=== PATIENT | male | born 1960 | race Two or more races ===

== ENCOUNTER 2017-10-21 23:46 | Observation (INO) | payer BC ==
[2017-10-22 01:16] LABS: BASO # 0.1 K/uL (0.0-0.2); BASO % 1.4 % (0.0-2.0); EOS # 0.1 K/uL (0.0-0.7); HEMOGLOBIN 12.7 g/dL (12.0-18.0); LYMPH # 2.4 K/uL (1.0-4.3); LYMPH % 34.4 % (20.0-40.0); MEAN CELL VOLUME 88.9 fL (80.0-94.0); MEAN CORPUSCULAR HEMOGLOBIN 30.7 pg (27.0-31.0); MEAN CORPUSCULAR HGB CONC 34.5 g/dL (33.0-37.0); MEAN PLATELET VOLUME 8.4 fL (7.2-11.7); MONO # 0.8 K/uL (0.0-0.8); MONO % 11.3 % (0.0-10.0); NEUT # 3.5 K/uL (1.8-7.0); NEUT % 51.9 % (50.0-75.0); RBC 4.12 Mil/uL (4.40-5.90); RED CELL DISTRIBUTION WIDTH 13.5 % (11.5-14.5); WHITE BLOOD COUNT 6.8 K/uL (4.8-10.8)
[2017-10-22 01:22] LABS: ALB/GLOB RATIO 1.2 (1.0-2.1); ALT/SGPT 48 U/L (21-72); AST/SGOT 35 U/L (17-59); BLOOD UREA NITROGEN 12 mg/dL (9-20); CALCIUM 8.2 mg/dl (8.6-10.4); GFR AFRICAN-AMERICAN > 60; GFR NON-AFRICAN AMERICAN > 60
[2017-10-22 01:35] LABS: B-TYPE NATRIURETIC PEPTIDE < 11.1 pg/mL (0-900)
--- NOTE | 2017-10-22 03:24 | C.PDOC ---
History Of Present Illness 57 year old with PMHx of DM and HTN presents to the ED for evaluation of headache, dizziness and CP for the past 3 days. Patient reports feeling intermittent dizziness and CP for the past few weeks patient states it happens at rest and exertion not able to state what makes it better or worse but today was worse than previous days. Patient reports having right knee replacement surgery and left ankle open internal fixation. Patient denies SOB, fever, chills , nausea, vomit. Time Seen by Provider: 10/22/17 00:29 Chief Complaint (Nursing): Chest Pain History Per: Patient History/Exam Limitations: no limitations Onset/Duration Of Symptoms: Days Current Symptoms Are (Timing): Still Present Pain Scale Rating Of: 2 Quality: Sharp, "Pain" Associated Symptoms: Nausea Modifying Factors: None Exacerbating Factors: None Recent travel outside of the [place]: No Additional History Per: Patient Past Medical History Reviewed: Historical Data, Nursing Documentation, Vital Signs Vital Signs: Last Vital Signs Temp 97.8 F 10/22/17 23:30 Pulse 65 10/23/17 00:40 Resp 18 10/22/17 23:30 BP 130/73 10/22/17 23:30 Pulse Ox 96 10/22/17 23:30 - Medical History PMH: Diabetes, HTN Other Surgeries: right knee replacement, left ankle open reduction Family History: States: Unknown Family Hx - Social History Hx Alcohol Use: Yes Hx Substance Use: No - Immunization History Hx Tetanus Toxoid Vaccination: No Hx Influenza Vaccination: No Hx Pneumococcal Vaccination: No Review Of Systems Constitutional: Negative for: Fever, Chills ENT: Negative for: Ear Pain Cardiovascular: Positive for: Chest Pain. Negative for: Palpitations Respiratory: Negative for: Cough, Shortness of Breath Gastrointestinal: Negative for: Nausea, Vomiting, Abdominal Pain Genitourinary: Negative for: Dysuria Musculoskeletal: Negative for: Neck Pain Skin: Positive for: Rash Neurological: Negative for: Weakness, Numbness, Headache Psych: Negative for: Anxiety Physical Exam - Physical Exam Appears: Non-toxic, No Acute Distress Skin: Normal Color, Warm, Dry Head: Atraumatic, Normacephalic Eye(s): bilateral: Normal Inspection Ear(s): Bilateral: Normal Nose: No Discharge Oral Mucosa: Moist Tongue: Normal Appearing Lips: Normal Appearing Teeth: Normal Dentition Neck: Normal ROM, Supple Chest: Symmetrical Cardiovascular: Rhythm Regular, No Murmur Respiratory: Normal Breath Sounds, No Rales, No Rhonchi, No Wheezing Gastrointestinal/Abdominal: Soft, No Tenderness Back: Normal Inspection Male Genital: Normal Inspection Extremity: Normal ROM, No Pedal Edema, No Calf Tenderness, No Deformity, No Swelling Extremity: Bilateral: Atraumatic Neurological/Psych: Oriented x3, Normal Speech, Normal Cognition ED Course And Treatment - Laboratory Results Result Diagrams: 10/22/17 01:07 10/22/17 01:07 ECG: Interpreted By Me, Viewed By Me ECG Rhythm: Sinus Rhythm Interpretation Of ECG: NSR 87 MT 178 QRS 108 Qt 375 Qtc 450 Rate From EC O2 Sat by Pulse Oximetry: 100 (On RA) Pulse Ox Interpretation: Normal - Radiology CXR: Interpreted by Me, Viewed By Me CXR Interpretation: No: No Acute Disease, Infiltrates, Cardiomegaly, Pnemothorax Medical Decision Making Medical Decision Making: Plan: * EKG * Labs * BS 303 * CBC unremarkable * CXR neg * trop neg * labs unremarkable * Pt 's story for angina is concerning. Pt will stay for a cardiac stress test in am. Disposition Counseled Patient/Family Regarding: Diagnosis - Disposition Disposition: HOSPITALIZED Disposition Time: 02:06 Condition: STABLE - Clinical Impression Clinical Impression: Chest pain, Precordial pain, Diabetes 1.5, managed as type 2, Hypertension - Scribe Statement The provider has reviewed the documentation as recorded by the Scribe Sha Alicea All medical record entries made by the Scribe were at my direction and personally dictated by me. I have reviewed the chart and agree that the record accurately reflects my personal performance of the history, physical exam, medical decision making, and the department course for this patient. I have also personally directed, reviewed, and agree with the discharge instructions and disposition.
--- NOTE | 2017-10-22 07:53 | RAD ---
HISTORY: SOB COMPARISON: None TECHNIQUE: Chest PA and lateral FINDINGS: LUNGS: No focal consolidation is seen. PLEURA: No pleural effusion is identified. CARDIOVASCULAR: Heart size is within normal limits. OSSEOUS STRUCTURES: Degenerative changes noted of the spine. VISUALIZED UPPER ABDOMEN: Unremarkable. OTHER FINDINGS: None. IMPRESSION: No acute cardiopulmonary process seen.
[2017-10-22] MEDS: (Novolog) Insulin Aspart, Recombinant 100 u/ml 10 ml vial SC SCH ×4 (08:28→21:51)
[2017-10-22] MEDS: Enoxaparin 40 mg Syringe SC SCH (09:55)
[2017-10-22 16:58] LABS: CK-MB 2.15 ng/mL (0.0-3.38)
--- NOTE | 2017-10-22 19:25 | CP.PCM.CON ---
History of Present Illness - History of Present Illness History of Present Illness: 57 year old with DM, HTN, had dizziness, cp atypical, no EKG changes, NO AL, f/ u with echo, prior surgery and both knees. Review of Systems - Review of Systems Systems not reviewed;Unavailable: Acuity of Condition - Constitutional Constitutional: Lethargy, Weakness - EENT Eyes: absent: Discharge Nose/Mouth/Throat: absent: Epistaxis, Nasal Congestion - Cardiovascular Cardiovascular: Chest Pain. absent: Acrocyanosis, Diaphoresis, Dyspnea on Exertion, Edema, Palpitations, Syncope - Respiratory Respiratory: Dyspnea. absent: Cough, Hemoptysis - Gastrointestinal Gastrointestinal: absent: Abdominal Pain, Hematochezia, Vomiting - Genitourinary Genitourinary: absent: Change in Urinary Stream Past Patient History - Past Medical History & Family History Past Medical History?: Yes - Past Social History Smoking Status: Never Smoked - CARDIAC Hx Cardiac Disorders: Yes Hx Hypertension: Yes - PULMONARY Hx Respiratory Disorders: No - NEUROLOGICAL Hx Neurological Disorder: No - HEENT Hx HEENT Problems: No - RENAL Hx Chronic Kidney Disease: No - ENDOCRINE/METABOLIC Hx Endocrine Disorders: Yes Hx Diabetes Mellitus Type 2: Yes - HEMATOLOGICAL/ONCOLOGICAL Hx Blood Disorders: No - INTEGUMENTARY Hx Dermatological Problems: No - MUSCULOSKELETAL/RHEUMATOLOGICAL Hx Musculoskeletal Disorders: Yes Hx Falls: No Hx Fractures: Yes (left ankle) - GASTROINTESTINAL Hx Gastrointestinal Disorders: No - GENITOURINARY/GYNECOLOGICAL Hx Genitourinary Disorders: No - PSYCHIATRIC Hx Psychophysiologic Disorder: No Hx Substance Use: No - SURGICAL HISTORY Hx Surgeries: Yes Hx Joint Replacement: Yes (RIGHT KNEE) Other/Comment: LEFT ANKLE SCREW - ANESTHESIA Hx Anesthesia: Yes Hx Anesthesia Reactions: No Meds Allergies/Adverse Reactions: Allergies Allergy/AdvReac Type Severity Reaction Status Date / Time No Known Allergies Allergy Unverified 10/22/17 00:03 - Medications Medications: Current Medications Acetaminophen (Tylenol 325mg Tab) 650 mg PO Q6 PRN PRN Reason: Pain, moderate (4-7) Last Admin: 10/22/17 16:35 Dose: 650 mg Aspirin (Aspirin Chewable) 81 mg PO DAILY [facility] Last Admin: 10/22/17 09:55 Dose: 81 mg Enoxaparin Sodium (Lovenox) 40 mg SC DAILY [facility] Last Admin: 10/22/17 09:55 Dose: 40 mg Glipizide (Glucotrol) 5 mg PO BID [facility] Last Admin: 10/22/17 17:18 Dose: 5 mg Insulin Aspart (Novolog) 0 unit SC ACHS [facility] PRN Reason: Protocol Last Admin: 10/22/17 17:02 Dose: Not Given Losartan Potassium (Cozaar) 100 mg PO DAILY [facility] Last Admin: 10/22/17 09:55 Dose: 100 mg Rosuvastatin Calcium (Crestor) 20 mg PO [facility] Physical Exam - Head Exam Head Exam: ATRAUMATIC - Eye Exam Eye Exam: EOMI, PERRL - ENT Exam ENT Exam: Mucous Membranes Moist - Neck Exam Neck exam: Negative for: Lymphadenopathy, Thyromegaly - Respiratory Exam Respiratory Exam: Clear to Auscultation Bilateral. absent: Rales - Cardiovascular Exam Cardiovascular Exam: REGULAR RHYTHM - GI/Abdominal Exam GI & Abdominal Exam: Normal Bowel Sounds. absent: Organomegaly - Rectal Exam Rectal Exam: Deferred - Extremities Exam Extremities exam: Positive for: normal capillary refill, pedal pulses present. Negative for: calf tenderness - Neurological Exam Neurological exam: Alert, Oriented x3 - Psychiatric Exam Psychiatric exam: Normal Mood - Skin Skin Exam: Dry Results - Vital Signs Recent Vital Signs: Last Vital Signs Temp 97.5 F L 10/22/17 15:58 Pulse 83 10/22/17 16:00 Resp 20 10/22/17 15:58 BP 145/86 10/22/17 15:58 Pulse Ox 96 10/22/17 15:58 - Labs Result Diagrams: 10/22/17 01:07 10/22/17 01:07 Labs: Laboratory Results - last 24 hr 10/22/17 10/22/17 10/22/17 01:07 01:07 03:28 WBC 6.8 RBC 4.12 L Hgb 12.7 Hct 36.7 MCV 88.9 MCH 30.7 MCHC 34.5 RDW 13.5 Plt Count 228 MPV 8.4 Neut % (Auto) 51.9 Lymph % (Auto) 34.4 [place] % (Auto) 11.3 H Eos % (Auto) 1.0 Baso % (Auto) 1.4 Neut # 3.5 Lymph # 2.4 [place] # 0.8 Eos # 0.1 Baso # 0.1 Sodium 134 Potassium 3.7 Chloride 96 L Carbon Dioxide 26 Anion Gap 16 BUN 12 Creatinine 0.9 Est GFR ( Amer) > 60 Est GFR (Non-Af Amer) > 60 POC Glucose (mg/dL) Random Glucose 303 H Calcium 8.2 L Total Bilirubin 0.5 AST 35 ALT 48 Alkaline Phosphatase 73 Total Creatine Kinase CK-MB (Mass) Troponin I < 0.0120 < 0.0120 NT-Pro-B Natriuret Pep < 11.1 Total Protein 7.4 Albumin 4.0 Globulin 3.4 Albumin/Globulin Ratio 1.2 10/22/17 10/22/17 10/22/17 06:30 11:54 15:37 WBC RBC Hgb Hct MCV MCH MCHC RDW Plt Count MPV Neut % (Auto) Lymph % (Auto) [place] % (Auto) Eos % (Auto) Baso % (Auto) Neut # Lymph # [place] # Eos # Baso # Sodium Potassium Chloride Carbon Dioxide Anion Gap BUN Creatinine Est GFR ( Amer) Est GFR (Non-Af Amer) POC Glucose (mg/dL) 236 H 246 H Random Glucose Calcium Total Bilirubin AST ALT Alkaline Phosphatase Total Creatine Kinase 554 H CK-MB (Mass) 2.15 Troponin I < 0.0120 NT-Pro-B Natriuret Pep Total Protein Albumin Globulin Albumin/Globulin Ratio 10/22/17 16:25 WBC RBC Hgb Hct MCV MCH MCHC RDW Plt Count MPV Neut % (Auto) Lymph % (Auto) [place] % (Auto) Eos % (Auto) Baso % (Auto) Neut # Lymph # [place] # Eos # Baso # Sodium Potassium Chloride Carbon Dioxide Anion Gap BUN Creatinine Est GFR ( Amer) Est GFR (Non-Af Amer) POC Glucose (mg/dL) 136 H Random Glucose Calcium Total Bilirubin AST ALT Alkaline Phosphatase Total Creatine Kinase CK-MB (Mass) Troponin I NT-Pro-B Natriuret Pep Total Protein Albumin Globulin Albumin/Globulin Ratio Assessment & Plan (1) Chest pain Status: Acute Comment: no AL f/u with echo (2) Diabetes 1.5, managed as type 2 Status: Chronic (3) Hypertension Status: Chronic
--- NOTE | 2017-10-22 19:25 | CARD ---
APPROVED REPORT EXAM: Two-dimensional and M-mode echocardiogram with Doppler and color Doppler. Other Information Quality : GoodRhythm : INDICATION Dizziness and Vertigo Chest Pain RISK FACTORS Hypertension Diabetes 2D DIMENSIONS IVSd1.1 (0.7-1.1cm)LVDd5.8 (3.9-5.9cm) PWd1.0 (0.7-1.1cm)LVDs3.9 (2.5-4.0cm) FS (%) 32.4 %LVEF (%)59.9 (>50%) M-Mode DIMENSIONS Left Atrium (MM)4.55 (2.5-4.0cm)Aortic Root3.88 (2.2-3.7cm) Aortic Cusp Exc.2.64 (1.5-2.0cm) Mitral Valve MV E Sztgarkr88.7cm/sMV A Rgcomwgg53.0cm/sE/A ratio0.8 TDI E/Lateral E'0.0E/Medial E'0.0 Tricuspid Valve TR Peak Fgusesmv677mx/sTR Peak Gr.[id number] LEFT VENTRICLE The left ventricle is normal size. There is normal left ventricular wall thickness. The left ventricular function is normal. The left ventricular ejection fraction is within the normal range. There is normal LV segmental wall motion. Transmitral Doppler flow pattern is abnormal. RIGHT VENTRICLE The right ventricle is normal size. ATRIA The right atrium size is normal. AORTIC VALVE The aortic valve is normal in structure. MITRAL VALVE Mitral regurgitation is trace. TRICUSPID VALVE There is trace to mild tricuspid regurgitation. <Conclusion> Normal LV systolic function. Disatolic dysfunction. Trace MR. Trace to mild TR.
--- NOTE | 2017-10-22 23:17 | CP.PCM.HP ---
History of Present Illness - History of Present Illness History of Present Illness: Chief Complaint ]: Chest Pain HPI: 57 year old with PMHx of DM and HTN presents to the ED for evaluation of headache, dizziness and CP for the past 3 days. Patient reports feeling intermittent dizziness and CP for the past few weeks patient states it happens at rest and exertion not able to state what makes it better or worse but today was worse than previous days. Patient reports having right knee replacement surgery and left ankle open internal fixation. Patient denies SOB, fever, chills , nausea, vomit. Present on Admission - Present on Admission Any Indicators Present on Admission: Yes Review of Systems - Review of Systems Systems not reviewed;Unavailable: Acuity of Condition - Constitutional Constitutional: Fatigue, Lethargy, Malaise - EENT Eyes: absent: As Per HPI, Blind Spots, Blurred Vision, Change in Vision, Decreased Night Vision, Diplopia, Discharge, Dry Eye, Exophthalmos, Floaters, Irritation, Itchy Eyes, Loss of Peripheral Vision, Pain, Photophobia, Requires Corrective Lenses, Sees Flashes, Spots in Vision, Tunnel Vision, Other Visual Disturbances, Loss of Vision, Other Nose/Mouth/Throat: absent: As Per HPI, Epistaxis, Nasal Congestion, Nasal Discharge, Nasal Obstruction, Nasal Trauma, Nose Pain, Post Nasal Drip, Sinus Pain, Sinus Pressure, Bleeding Gums, Change in Voice, Dental Pain, Dry Mouth, Dysphagia, Halitosis, Hoarsness, Lip Swelling, Mouth Lesions, Mouth Pain, Odynophagia, Sore Throat, Throat Swelling, Tongue Swelling, Facial Pain, Neck Pain, Neck Mass, Other - Cardiovascular Cardiovascular: Chest Pain, Dyspnea - Respiratory Respiratory: absent: As Per HPI, Cough, Dyspnea, Hemoptysis, Dyspnea on Exertion , Wheezing, Snoring, Stridor, Pain on Inspiration, Chest Congestion, Excessive Mucous Production, Change in Mucous Color, Pain with Coughing, Other - Gastrointestinal Gastrointestinal: absent: As Per HPI, Abdominal Pain, Belching, Bloating, Change in Bowel Habits, Change in Stool Character, Coffee Ground Emesis, Constipation, Cramping, Diarrhea, Dyspepsia, Dysphagia, Early Satiety, Excessive Flatus, Fecal Incontinence, Heartburn, Hematemesis, Hematochezia, Loose Stools, Melena, Nausea, Odynophagia, Temesmus, Vomiting, Other - Genitourinary Genitourinary: absent: As Per HPI, Change in Urinary Stream, Difficulty Urinating, Dysuria, Flank Pain, Hematuria, Pyuria, Nocturia, Urinary Incontinence, Urinary Frequency, Urinary Hesitance, Urinary Urgency, Voiding Freq/Small Amts, Freq UTI, Hx Renal/Bladder Calculi, Hx /Renal Surgery, Bladder Distension, Other - Musculoskeletal Musculoskeletal: Back Pain, Limited Range of Motion, Myalgias, Stiffness - Neurological Neurological: Dizziness, Weakness - Endocrine Endocrine: Palpitations, Polydipsia, Polyphagia, Polyuria Past Patient History - Past Medical History & Family History Past Medical History?: Yes - Past Social History Smoking Status: Never Smoked - CARDIAC Hx Cardiac Disorders: Yes Hx Hypertension: Yes - PULMONARY Hx Respiratory Disorders: No - NEUROLOGICAL Hx Neurological Disorder: No - HEENT Hx HEENT Problems: No - RENAL Hx Chronic Kidney Disease: No - ENDOCRINE/METABOLIC Hx Endocrine Disorders: Yes Hx Diabetes Mellitus Type 2: Yes - HEMATOLOGICAL/ONCOLOGICAL Hx Blood Disorders: No - INTEGUMENTARY Hx Dermatological Problems: No - MUSCULOSKELETAL/RHEUMATOLOGICAL Hx Musculoskeletal Disorders: Yes Hx Falls: No Hx Fractures: Yes (left ankle) - GASTROINTESTINAL Hx Gastrointestinal Disorders: No - GENITOURINARY/GYNECOLOGICAL Hx Genitourinary Disorders: No - PSYCHIATRIC Hx Psychophysiologic Disorder: No Hx Substance Use: No - SURGICAL HISTORY Hx Surgeries: Yes Hx Joint Replacement: Yes (RIGHT KNEE) Other/Comment: LEFT ANKLE SCREW - ANESTHESIA Hx Anesthesia: Yes Hx Anesthesia Reactions: No Meds Allergies/Adverse Reactions: Allergies Allergy/AdvReac Type Severity Reaction Status Date / Time No Known Allergies Allergy Unverified 10/22/17 00:03 Physical Exam - Constitutional Appears: No Acute Distress - Head Exam Head Exam: ATRAUMATIC, NORMAL INSPECTION, NORMOCEPHALIC - Eye Exam Eye Exam: EOMI, Normal appearance, PERRL Pupil Exam: NORMAL ACCOMODATION, PERRL - Respiratory Exam Respiratory Exam: Clear to Auscultation Bilateral - Cardiovascular Exam Cardiovascular Exam: REGULAR RHYTHM - GI/Abdominal Exam GI & Abdominal Exam: Normal Bowel Sounds, Soft. absent: Tenderness Results - Vital Signs Recent Vital Signs: Last Vital Signs Temp 97.5 F L 10/22/17 15:58 Pulse 83 10/22/17 16:00 Resp 20 10/22/17 15:58 BP 145/86 10/22/17 15:58 Pulse Ox 96 10/22/17 15:58 - Labs Result Diagrams: 10/22/17 01:07 10/22/17 01:07 Labs: Laboratory Results - last 24 hr 10/22/17 10/22/17 10/22/17 01:07 01:07 03:28 WBC 6.8 RBC 4.12 L Hgb 12.7 Hct 36.7 MCV 88.9 MCH 30.7 MCHC 34.5 RDW 13.5 Plt Count 228 MPV 8.4 Neut % (Auto) 51.9 Lymph % (Auto) 34.4 [place] % (Auto) 11.3 H Eos % (Auto) 1.0 Baso % (Auto) 1.4 Neut # 3.5 Lymph # 2.4 [place] # 0.8 Eos # 0.1 Baso # 0.1 Sodium 134 Potassium 3.7 Chloride 96 L Carbon Dioxide 26 Anion Gap 16 BUN 12 Creatinine 0.9 Est GFR ( Amer) > 60 Est GFR (Non-Af Amer) > 60 POC Glucose (mg/dL) Random Glucose 303 H Calcium 8.2 L Total Bilirubin 0.5 AST 35 ALT 48 Alkaline Phosphatase 73 Total Creatine Kinase CK-MB (Mass) Troponin I < 0.0120 < 0.0120 NT-Pro-B Natriuret Pep < 11.1 Total Protein 7.4 Albumin 4.0 Globulin 3.4 Albumin/Globulin Ratio 1.2 10/22/17 10/22/17 10/22/17 06:30 11:54 15:37 WBC RBC Hgb Hct MCV MCH MCHC RDW Plt Count MPV Neut % (Auto) Lymph % (Auto) [place] % (Auto) Eos % (Auto) Baso % (Auto) Neut # Lymph # [place] # Eos # Baso # Sodium Potassium Chloride Carbon Dioxide Anion Gap BUN Creatinine Est GFR ( Amer) Est GFR (Non-Af Amer) POC Glucose (mg/dL) 236 H 246 H Random Glucose Calcium Total Bilirubin AST ALT Alkaline Phosphatase Total Creatine Kinase 554 H CK-MB (Mass) 2.15 Troponin I < 0.0120 NT-Pro-B Natriuret Pep Total Protein Albumin Globulin Albumin/Globulin Ratio 10/22/17 10/22/17 16:25 21:25 WBC RBC Hgb Hct MCV MCH MCHC RDW Plt Count MPV Neut % (Auto) Lymph % (Auto) [place] % (Auto) Eos % (Auto) Baso % (Auto) Neut # Lymph # [place] # Eos # Baso # Sodium Potassium Chloride Carbon Dioxide Anion Gap BUN Creatinine Est GFR ( Amer) Est GFR (Non-Af Amer) POC Glucose (mg/dL) 136 H 198 H Random Glucose Calcium Total Bilirubin AST ALT Alkaline Phosphatase Total Creatine Kinase CK-MB (Mass) Troponin I NT-Pro-B Natriuret Pep Total Protein Albumin Globulin Albumin/Globulin Ratio Assessment & Plan (1) S/P TKR (total knee replacement) Status: Acute (2) Chest pain Status: Acute (3) Diabetes 1.5, managed as type 2 Status: Chronic (4) Hypertension Status: Chronic
[2017-10-23 05:33] LABS: CK-MB 1.42 ng/mL (0.0-3.38)
[2017-10-23] MEDS: (Novolog) Insulin Aspart, Recombinant 100 u/ml 10 ml vial SC SCH ×5 (08:25→21:40)
[2017-10-23 08:37] LABS: HDL CHOLESTEROL 35 mg/dL (30-70)
[2017-10-23 08:43] LABS: CK-MB 1.52 ng/mL (0.0-3.38)
[2017-10-23 08:48] LABS: LDL CHOLESTEROL 102 mg/dL (0-129)
[2017-10-23] MEDS: Enoxaparin 40 mg Syringe SC SCH (10:10)
--- NOTE | 2017-10-23 12:27 | CP.PCM.PN ---
Subjective - Date & Time of Evaluation Date of Evaluation: 10/23/17 Time of Evaluation: 12:00 - Subjective Subjective: Negative enzymes for LA, EKG with right axis deviation, echo with normal left ventricular contractility, normal right ventricular size and function, no pulmonary hypertension no pericardial disease. With prior knee surgery, he underwent an exercise stress test where he didn't 6.3 minutes of Taye protocol , no chest pain no significant EKG changes. Follow [facility]. Objective - Vital Signs/Intake and Output Vital Signs (last 24 hours): Temp Pulse Resp BP Pulse Ox 97.8 F 64 18 130/73 100 10/22/17 23:30 10/23/17 04:04 10/22/17 23:30 10/22/17 23:30 10/23/17 02:06 Intake and Output: 10/23/17 10/23/17 06:59 18:59 Intake Total 0 Output Total 400 Balance -400 - Medications Medications: Current Medications Acetaminophen (Tylenol 325mg Tab) 650 mg PO Q6 PRN PRN Reason: Pain, moderate (4-7) Last Admin: 10/23/17 04:33 Dose: 650 mg Aspirin (Aspirin Chewable) 81 mg PO DAILY [facility] Last Admin: 10/23/17 10:10 Dose: 81 mg Enoxaparin Sodium (Lovenox) 40 mg SC DAILY [facility] Last Admin: 10/23/17 10:10 Dose: 40 mg Glipizide (Glucotrol) 5 mg PO BID [facility] Last Admin: 10/23/17 10:10 Dose: 5 mg Insulin Aspart (Novolog) 0 unit SC ACHS [facility] PRN Reason: Protocol Last Admin: 10/23/17 10:09 Dose: 2 unit Losartan Potassium (Cozaar) 100 mg PO DAILY [facility] Last Admin: 10/23/17 10:10 Dose: 100 mg Rosuvastatin Calcium (Crestor) 20 mg PO HS [facility] Last Admin: 10/22/17 21:30 Dose: 20 mg - Labs Labs: 10/22/17 01:07 10/22/17 01:07 - Constitutional Appears: Non-toxic - Head Exam Head Exam: ATRAUMATIC - Eye Exam Eye Exam: EOMI - ENT Exam ENT Exam: Mucous Membranes Moist - Neck Exam Neck Exam: absent: Lymphadenopathy, Thyromegaly - Respiratory Exam Respiratory Exam: Clear to Ausculation Bilateral. absent: Rales - Cardiovascular Exam Cardiovascular Exam: REGULAR RHYTHM, Murmur - GI/Abdominal Exam GI & Abdominal Exam: Normal Bowel Sounds. absent: Organomegaly - Rectal Exam Rectal Exam: Deferred - Extremities Exam Extremities Exam: Normal Capillary Refill. absent: Calf Tenderness - Neurological Exam Neurological Exam: Alert, Oriented x3 - Psychiatric Exam Psychiatric exam: Normal Mood - Skin Skin Exam: Dry Assessment and Plan (1) Chest pain Status: Acute (2) Diabetes 1.5, managed as type 2 Status: Chronic (3) Hypertension Status: Chronic
--- NOTE | 2017-10-23 22:56 | CP.PCM.PN ---
Subjective - Date & Time of Evaluation Date of Evaluation: 10/23/17 Time of Evaluation: 17:00 - Subjective Subjective: Pt seen and examined is feeling better, cardiac enzymes x 3 are neg, he is afeberile, stress test and echo on hld will be done out ateint, pt is for medical managment and d/C planing tommorw Objective - Vital Signs/Intake and Output Vital Signs (last 24 hours): Temp Pulse Resp BP Pulse Ox 98.3 F 78 20 139/78 99 10/23/17 15:00 10/23/17 16:00 10/23/17 15:00 10/23/17 15:00 10/23/17 15:00 - Medications Medications: Current Medications Acetaminophen (Tylenol 325mg Tab) 650 mg PO Q6 PRN PRN Reason: Pain, moderate (4-7) Last Admin: 10/23/17 16:45 Dose: 650 mg Aspirin (Aspirin Chewable) 81 mg PO DAILY [facility] Last Admin: 10/23/17 10:10 Dose: 81 mg Enoxaparin Sodium (Lovenox) 40 mg SC DAILY [facility] Last Admin: 10/23/17 10:10 Dose: 40 mg Glipizide (Glucotrol) 5 mg PO BID [facility] Last Admin: 10/23/17 17:41 Dose: 5 mg Insulin Aspart (Novolog) 0 unit SC ACHS [facility] PRN Reason: Protocol Last Admin: 10/23/17 21:40 Dose: Not Given Losartan Potassium (Cozaar) 100 mg PO DAILY [facility] Last Admin: 10/23/17 10:10 Dose: 100 mg Rosuvastatin Calcium (Crestor) 20 mg PO HS [facility] Last Admin: 10/23/17 21:40 Dose: 20 mg Sitagliptin Phosphate (Januvia) 50 mg PO DAILY [facility] Last Admin: 10/23/17 18:16 Dose: 50 mg - Labs Labs: 10/22/17 01:07 10/22/17 01:07 - Constitutional Appears: No Acute Distress - Head Exam Head Exam: ATRAUMATIC, NORMAL INSPECTION, NORMOCEPHALIC - Eye Exam Eye Exam: EOMI, Normal appearance, PERRL Pupil Exam: NORMAL ACCOMODATION, PERRL - Respiratory Exam Respiratory Exam: Clear to Ausculation Bilateral, NORMAL BREATHING PATTERN - Cardiovascular Exam Cardiovascular Exam: REGULAR RHYTHM, +S1, +S2. absent: Murmur - GI/Abdominal Exam GI & Abdominal Exam: Soft, Normal Bowel Sounds. absent: Tenderness Assessment and Plan (1) S/P TKR (total knee replacement) Status: Acute (2) Chest pain Status: Acute (3) Diabetes 1.5, managed as type 2 Status: Chronic (4) Hypertension Status: Chronic
--- NOTE | 2017-10-23 23:30 | CARD ---
APPROVED REPORT EKG Measurement Heart [id number] QT0T0 QTc0 <Conclusion> No QRS complexes found, no ECG analysis possible
--- NOTE | 2017-10-23 23:35 | CARD ---
APPROVED REPORT EKG Measurement Heart [id number] <Conclusion> Normal sinus rhythm Technically poor. Inferior leads not evaluated Otherwise Normal ECG
[2017-10-24 08:32] LABS: CALCIUM 8.2 mg/dl (8.6-10.4); GFR AFRICAN-AMERICAN > 60; GFR NON-AFRICAN AMERICAN > 60
[2017-10-24 08:35] LABS: BLOOD UREA NITROGEN 11 mg/dL (9-20)
[2017-10-24] MEDS: (Novolog) Insulin Aspart, Recombinant 100 u/ml 10 ml vial SC SCH ×2 (09:00→12:54)
[2017-10-24] MEDS: Enoxaparin 40 mg Syringe SC SCH (09:01)
[2017-10-24 09:12] VITALS: PULSE 85; RESP 18; TEMP 97.9; O2SAT 98
[2017-10-24 10:01] VITALS: BP 152/90
--- NOTE | 2017-10-24 13:42 | CP.PCM.PN ---
Subjective - Date & Time of Evaluation Date of Evaluation: 10/24/17 Time of Evaluation: 10:45 Objective - Vital Signs/Intake and Output Vital Signs (last 24 hours): Temp Pulse Resp BP Pulse Ox 97.9 F 85 18 152/90 H 98 10/24/17 09:11 10/24/17 09:11 10/24/17 09:11 10/24/17 09:25 10/24/17 09:11 Intake and Output: 10/24/17 10/24/17 06:59 18:59 Intake Total 480 Balance 480 - Medications Medications: Current Medications Acetaminophen (Tylenol 325mg Tab) 650 mg PO Q6 PRN PRN Reason: Pain, moderate (4-7) Last Admin: 10/23/17 16:45 Dose: 650 mg Aspirin (Aspirin Chewable) 81 mg PO DAILY [facility] Last Admin: 10/24/17 09:01 Dose: 81 mg Enoxaparin Sodium (Lovenox) 40 mg SC DAILY [facility] Last Admin: 10/24/17 09:01 Dose: 40 mg Glipizide (Glucotrol) 5 mg PO BID [facility] Last Admin: 10/24/17 09:01 Dose: 5 mg Insulin Aspart (Novolog) 0 unit SC ACHS [facility] PRN Reason: Protocol Last Admin: 10/24/17 12:54 Dose: 3 unit Losartan Potassium (Cozaar) 100 mg PO DAILY [facility] Last Admin: 10/24/17 09:01 Dose: 100 mg Rosuvastatin Calcium (Crestor) 20 mg PO HS [facility] Last Admin: 10/23/17 21:40 Dose: 20 mg Sitagliptin Phosphate (Januvia) 50 mg PO DAILY [facility] Last Admin: 10/24/17 09:01 Dose: 50 mg - Labs Labs: 10/22/17 01:07 10/24/17 07:51
--- NOTE | 2017-10-24 21:47 | CP.PCM.DIS ---
Provider - Provider Date of Admission: 10/22/17 05:14 Attending physician: Juan Grewal MD Time Spent in preparation of Discharge (in minutes): 46 Diagnosis - Discharge Diagnosis (1) S/P TKR (total knee replacement) Status: Acute (2) Chest pain Status: Acute (3) Diabetes 1.5, managed as type 2 Status: Chronic (4) Hypertension Status: Chronic Hospital Course - Lab Results Lab Results: Most Recent Lab Values WBC 6.8 K/uL (4.8-10.8) 10/22/17 01:07 RBC 4.12 Mil/uL (4.40-5.90) L 10/22/17 01:07 Hgb 12.7 g/dL (12.0-18.0) 10/22/17 01:07 Hct 36.7 % (35.0-51.0) 10/22/17 01:07 MCV 88.9 fL (80.0-94.0) 10/22/17 01:07 MCH 30.7 pg (27.0-31.0) 10/22/17 01:07 MCHC 34.5 g/dL (33.0-37.0) 10/22/17 01:07 RDW 13.5 % (11.5-14.5) 10/22/17 01:07 Plt Count 228 K/uL (130-400) 10/22/17 01:07 MPV 8.4 fL (7.2-11.7) 10/22/17 01:07 Neut % (Auto) 51.9 % (50.0-75.0) 10/22/17 01:07 Lymph % (Auto) 34.4 % (20.0-40.0) 10/22/17 01:07 [place] % (Auto) 11.3 % (0.0-10.0) H 10/22/17 01:07 Eos % (Auto) 1.0 % (0.0-4.0) 10/22/17 01:07 Baso % (Auto) 1.4 % (0.0-2.0) 10/22/17 01:07 Neut # 3.5 K/uL (1.8-7.0) 10/22/17 01:07 Lymph # 2.4 K/uL (1.0-4.3) 10/22/17 01:07 [place] # 0.8 K/uL (0.0-0.8) 10/22/17 01:07 Eos # 0.1 K/uL (0.0-0.7) 10/22/17 01:07 Baso # 0.1 K/uL (0.0-0.2) 10/22/17 01:07 Sodium 129 mmol/L (132-148) L 10/24/17 07:51 Potassium 4.3 mmol/L (3.6-5.2) 10/24/17 07:51 Chloride 100 mmol/L (98-107) 10/24/17 07:51 Carbon Dioxide 25 mmol/L (22-30) 10/24/17 07:51 Anion Gap 9 (10-20) L 10/24/17 07:51 BUN 11 mg/dL (9-20) 10/24/17 07:51 Creatinine 0.8 mg/dL (0.8-1.5) 10/24/17 07:51 Est GFR ( Amer) > 60 10/24/17 07:51 Est GFR (Non-Af Amer) > 60 10/24/17 07:51 POC Glucose (mg/dL) 258 mg/dL (65-110) H 10/24/17 11:15 Random Glucose 195 mg/dL (75-110) H 10/24/17 07:51 Hemoglobin A1c 9.8 % (4.2-6.5) H 10/23/17 07:58 Calcium 8.2 mg/dl (8.6-10.4) L 10/24/17 07:51 Total Bilirubin 0.5 mg/dL (0.2-1.3) 10/22/17 01:07 AST 35 U/L (17-59) 10/22/17 01:07 ALT 48 U/L (21-72) 10/22/17 01:07 Alkaline Phosphatase 73 U/L (38-126) 10/22/17 01:07 Total Creatine Kinase 351 U/L (55-170) H 10/23/17 07:58 CK-MB (Mass) 1.52 ng/mL (0.0-3.38) 10/23/17 07:58 Troponin I < 0.0120 ng/mL (0.00-0.120) 10/23/17 07:58 NT-Pro-B Natriuret Pep < 11.1 pg/mL (0-900) 10/22/17 01:07 Total Protein 7.4 g/dL (6.3-8.3) 10/22/17 01:07 Albumin 4.0 g/dL (3.5-5.0) 10/22/17 01:07 Globulin 3.4 gm/dL (2.2-3.9) 10/22/17 01:07 Albumin/Globulin Ratio 1.2 (1.0-2.1) 10/22/17 01:07 Triglycerides 97 mg/dL (0-149) 10/23/17 07:58 Cholesterol 167 mg/dL (0-199) 10/23/17 07:58 LDL Cholesterol Direct 102 mg/dL (0-129) 10/23/17 07:58 HDL Cholesterol 35 mg/dL (30-70) 10/23/17 07:58 - Hospital Course Hospital Course: Pt cardiac enzymes x 3 neg, stress test neg Acute Mi is ruled out Pt is for cardiology eval and pending ECho out pateint Pt agreed to be complaint Discharge Exam - Head Exam Head Exam: ATRAUMATIC - Eye Exam Eye Exam: EOMI, Normal appearance, PERRL Pupil Exam: NORMAL ACCOMODATION, PERRL - ENT Exam ENT Exam: Mucous Membranes Moist - Respiratory Exam Respiratory Exam: Clear to PA & Lateral, NORMAL BREATHING PATTERN - Cardiovascular Exam Cardiovascular Exam: Tachycardia, +S1, +S2 Discharge Plan - Discharge Medications Prescriptions: Blood-Glucose Meter [Accu-Chek Guide Monitor System] 1 each TID 30 Days each Blood Sugar Diagnostic [Accu-Chek Guide Test Strip] 1 each TID 30 Days strip Lancing Device/Lancets [Accu-Chek Multiclix Lancet Kit] 1 each TID 30 Days kit Aspirin [Aspirin Chewable] 81 mg PO DAILY #30 chew Losartan [Cozaar] 100 mg PO DAILY #30 tab Rosuvastatin Calcium [Crestor] 20 mg PO HS #30 tab GlipiZIDE [Glucotrol] 5 mg PO BID #60 tab SITagliptin [Januvia] 100 mg PO DAILY #30 tab - Follow Up Plan Condition: STABLE Disposition: HOME/ ROUTINE Instructions: Glipizide (By mouth), Aspirin (By mouth), Losartan (By mouth), Rosuvastatin (By mouth), Sitagliptin (By mouth), Angina (DC), Chest Pain (DC), How to Check Your Blood Sugar (DC), How to Check Your Blood Sugar (GEN), Diabetes Insipidus (DC), Diabetic Foot Care (DC), Hypertension (DC), Hypertension (GEN) Additional Instructions: Please f/u with office next ( f/u visit) Please do accucheck BID continue medication as per med rec.
--- NOTE | 2017-10-26 11:46 | CARD ---
APPROVED REPORT Protocol: JOSÉ ANTONIO Test Type: NUCLEAR STRESS Test Indications: CP Medical History: CP Target HR: 164 bpm Resting ECG: abnormal R axis Resting Heart Rate: 108 bpm Resting Blood Pressure: 136/80mmHg submaximum (85%): 139 bpm TEST SUMMARY PRETESTWARM-UP30:[id number]/80.0. EXERCISESTAGE 103:[id number]/80.0. EXERCISESTAGE 203:[id number]/80.0. EXERCISESTAGE 300:[id number]/80.0. OMWLCHOU60:[id number]/80.0. POST EXERCISE Reason for Termination: Fatigue Leg discomfort KNEE Target HR: No Max HR: 133 bpm 84% of Maximum Predicted HR: 164 bpm Exercise duration: 06:17 min:sec, 3 Stage Exercise capacity: 7.8METs Max Blood Pressure: 160/80mmHg Blood Pressure response to exercise: normal resting BP - appropriate response Heart Rate response to exercise: appropriate Chest Pain: No, none Angina index: 0 Arrhythmia: Yes, atrial premature beats ST Change: Yes, Depression upsloping Deviation: 0 mm INTERPRETATION Stress EKG Conclusion: Normal stress test EXAM: Myocardial Perfusion REST/STRESS Imaging Protocol The imaging protocol used to acquire images was Rest Tc-99m/stress Tc-99m 1 day Rest Spect myocardial perfusion imaging was performed in supine position 40 minutes following the injection of 12.9 mCi of Tc-99 Myoview. Gated Stress Spect was performed 41 minutes after intravenous 32.9 mCi Tc-99 Myoview injection. The images were gated to evaluate regional wall motion and calculate ventricular ejection fraction.Images were reconstructed using backfilter projection method in short horizontal and verticle long axis. Spect slices were generated. RESTING DATA [id number]/min ESV73.00mlMyocardial Gjym747.00g Av. Heart Rate71.00bpm EF59.00% STRESS DATA FQW490.71xgZC7.20L/min ESV80.00mlMyocardial Xxyb947.00g EF54.00% Regional WT score at stress:2.00 Regional WM score at stress:0.00 Summed WT score at stress:16.00 Av. Heart Rate77.00bpmSummed WM score at stress:1.00 LV Perf. Quant 17 Seg. SSS1.00 17 Seg. SRS0.00 17 Seg. SDS1.00 Stress Defect Extent (% LAD)0.00Rest Defect Extent (% LAD)0.00Rev. Defect Extent (% LAD)0.00 Stress Defect Extent (% LCX)10.00Rest Defect Extent (% LCX)13.80Rev. Defect Extent (% LCX)0.00 Stress Defect Extent (% RCA)0.00Rest Defect Extent (% RCA)0.00Rev. Defect Extent (% RCA)0.00 Stress Defect Extent (% CELE)1.70Rest Defect Extent (% CELE)3.30Rev. Defect Extent (% CELE)0.00 Left Ventricle LV Size/Shape: The left ventricle is normal size. LV Function:Left ventricle systolic function is normal. The Ejection Fraction is 54% down from 59% at rest. Regional Wall Motion:No regional wall motion abnormalities noted. Mild global hypokinesia Metabolism/Perfusion Reversible/Irreversible: There is a small irreversible perfusion/metabolism defect in the Apical lateral wall. Conclusion 1. Left ventricle systolic function is normal. 2. The Ejection Fraction is 54% down from 59% at rest. 3. No regional wall motion abnormalities noted. Mild global hypokinesia 4. No ischemia, decreased exercise tolerance.
== END 2017-10-24 15:02 | disposition home or self-care (01) ==
LOC: C.ER 23:46 → C.6T 10-22 05:14 → INTOOBSV 10-22 05:14
PROVIDERS: ADMIT Internal Medicine; ATTEND Internal Medicine
DX: R07.2 Precordial pain (principal); E11.9 Type 2 diabetes mellitus without complications; I10 Essential (primary) hypertension; Z96.651 Presence of right artificial knee joint
CPT/HCPCS: 36415; 71046; 80048; 80053; 80061; 82948; 83036; 83880; 84484; 85025; 93005; 93306; 99285; G0378; J1650